=== PATIENT | female | born 1965 | race Caucasian/White ===

== ENCOUNTER 2022-11-04 13:10 | Emergency (ER) | payer MEDICARE, MEDICAID, SELFPAY ==
[2022-11-04 13:12] VITALS: BP 162/94; PULSE 80; RESP 14; TEMP 37.1; O2SAT 92; BMI 29.2
[2022-11-04 13:16] VITALS: BP 162/94; PULSE 80; RESP 14; TEMP 37.1; O2SAT 92; BMI 29.2
--- NOTE | 2022-11-04 13:38 | W.ED.EXTPRO ---
HPI - Extremity Problem General: Chief complaint: Extremity Injury, Upper Stated complaint: FALL/ ARM & SHOULDER PAIN Time Seen by Provider: 11/04/22 13:38 History of Present Illness: Ms. Cano is a 57-year-old lady not on anticoagulation presenting to the emergency department due to fall with shoulder injury. She reports leaning down to do something with a dog leash when she fell backwards primarily landing on the right side of her upper body. No loss of consciousness or head strike. Immediately pain in the shoulder. Mild radiation distally. Worse with palpation and movement. No other specific changes in health, exacerbating, or alleviating factors identified. Onset (ago): hour(s) Pain Consistency: constant Location: right Quality: aching and sharp Radiation: distal Relieving factors: nothing Exacerbating factors: range of motion and palpation Review of Systems General: Reports: 10 or more systems reviewed and unremarkable except in HPI and below PFSH ED PFSH: Medical History (Updated 11/17/22 @ 14:57 by Hayden Lowery MD) No significant past medical history Surgical History (Updated 11/17/22 @ 14:57 by Hayden Lowery MD) No significant past surgical history Physical Exam Const: COMMON NORMALS: alert GENERAL APPEARANCE: cooperative and well developed HENMT: COMMON NORMALS: normocephalic and atraumatic HEAD & SCALP: normocephalic and atraumatic THROAT: posterior oropharynx normal OTHER: No quiroz signs or raccoon eyes. No hemotympanum. No otorrhea or rhinorrhea. Jaw alignment normal. Dentition baseline. No obvious bony step-offs. No septal hematoma. No evidence of ocular entrapment. Eye: COMMON NORMALS: conjunctivae normal CONJUNCTIVA: Yes conjunctivae normal SCLERA: sclerae normal Neck/C-Spine: COMMON NORMALS: supple GENERAL: Yes trachea midline Chest: COMMONS NORMALS: normal palpation of entire chest wall Resp: COMMON NORMALS: clear to auscultation bilaterally EFFORT & INSPECTION: Yes able to speak in complete sentences AUSCULTATION: clear to auscultation bilaterally Cardio: COMMON NORMALS: regular rate and regular rhythm RATE: regular rate RHYTHM: regular rhythm GI: COMMON NORMALS: Soft to palpation PALPATION: Yes Soft to palpation and No Tenderness to palpation present (GI) Back/Pelvis: COMMON NORMALS: no thoracic nor lumbar tenderness Extremity: NARRATIVE EXTREMITY EXAM: Right mid and proximal humerus tenderness to palpation. Mild tenderness at the medial shoulder joint. Distal CMS intact. GENERAL: Yes normal exam except as noted and No edema Neuro: COMMON NORMALS: moves all extremities SENSORIUM/ORIENTATION: Yes alert and No Orientation impaired Psych: COMMON NORMALS: mental status grossly normal and Normal thought process present THOUGHT PROCESS: Normal thought process present Course Vital Signs: Vital signs: Vital Signs Temperature 98.7 F 11/04/22 13:16 Pulse Rate 80 11/04/22 13:16 Respiratory Rate 16 11/04/22 14:04 Blood Pressure 162/94 11/04/22 13:16 Pulse Oximetry 96 11/04/22 14:04 Oxygen Delivery Me thod 11/04/22 13:16 MDM - Extremity (Nontraumatic) Medical Decision Making 57-year-old lady presenting due to mechanical fall. Exam as above. Given clinical history no indication for laboratory studies at this time. X-rays with comminuted fracture of the humeral head. Chest x-ray negative for other pathology. Patient placed in sling. Pain controlled with analgesia. Given that pharmacies are closed analgesia dispensed for home along with prescription. Patient will have outpatient follow-up with orthopedics. Most likely etiology of symptoms is proximal humerus fracture. The results of ED evaluation were discussed with the patient including prescriptions and/or symptomatic cares (if applicable) including appropriate and responsible use, followup plan, and return precautions. The patient verbalized understanding and felt safe for discharge. Medical Records I reviewed the patient's medical records. Lab Data I reviewed the patient's lab results. Radiology Impressions Chest X-Ray 11/04/22 13:42 IMPRESSION: 1. Comminuted fracture right femoral head 2. Postoperative hardware cervical spine Humerus X-Ray 11/04/22 13:42 IMPRESSION: 1. Comminuted fracture of the humeral head. 2. Otherwise negative examination Shoulder X-Ray 11/04/22 14:38 IMPRESSION: 1. Comminuted fracture of the humeral head 2. Otherwise negative examination Discharge Plan Discharge Patient Disposition: Home Clinical Impression: Fracture of humerus Condition: Stable Prescriptions: New ondansetron 4 mg tablet,disintegrating 4 mg PO Q8H PRN (Reason: nausea and vomiting) Qty: 15 0RF oxycodone 5 mg tablet 5 mg PO Q4H PRN (Reason: pain) Qty: 20 0RF Discharge Orders: Discharge ED (Routine); Ordered 11/04/22 Ordered By: Hayden Lowery Referrals: Santiago Lo MD [Primary Care Provider] - Discharge Diet: Usual diet Discharge Activity: Limit activity as instructed Patient Instructions: Proximal Humerus Fracture (ED), Opioid Safety Activity Restrictions/Additional Instructions: Thank you for visiting the emergency department. You were seen and evaluated for fall with shoulder injury. You are found to have a humeral head fracture. I will message case management for orthopedics follow-up. I will prescribe oxycodone as well as antinausea medication. Please use this cautiously as discussed. You may use [id number] medications such as acetaminophen and ibuprofen for pain however please do not exceed the daily recommended dosage as listed on the packaging and please keep in mind that many namebrand medications contain the same active ingredients. Please avoid these medications if previously instructed to do so by another physician due to other underlying medical condition. Return to the emergency department for uncontrolled pain, any sensory or motor changes, or anything else that you are concerned about a feel needs emergency department evaluation. Coding Level of Care Code ED Behavioral Intervention Specialist for Bee Patel
--- NOTE | 2022-11-04 13:42 | XRR_ITS ---
PROCEDURE INFORMATION: Exam: XR Right Shoulder Exam date and time: 11/04/2022 1:47 PM Age: 57 years old Clinical indication: Injury or trauma; Fall; Blunt trauma (contusions or hematomas); Shoulder; Right TECHNIQUE: Imaging protocol: Radiologic exam of the Right shoulder. Views: 2 or more views. COMPARISON: No relevant prior studies available. FINDINGS: Bones/joints: Comminuted mildly displaced fractures of the right humeral head. There is no evidence of dislocation of the glenohumeral joint. Postsurgical hardware is seen in the cervical spine. Soft tissues: Normal. XR/XR shoulder RT min 2V* [id number] IMPRESSION: 1. Comminuted fracture right humeral head 2. Postsurgical hardware cervical spine 3. Otherwise negative examination
--- NOTE | 2022-11-04 13:42 | XRR_ITS ---
PROCEDURE INFORMATION: Exam: XR Right Humerus Exam date and time: 11/04/2022 1:47 PM Age: 57 years old Clinical indication: Injury or trauma; Fall; Blunt trauma (contusions or hematomas); Arm, upper; Right TECHNIQUE: Imaging protocol: Radiologic exam of the Right humerus. Views: 2 or more views. COMPARISON: No relevant prior studies available. FINDINGS: Bones/joints: Comminuted displaced fracture of the humeral head. Soft tissues: Normal. The remainder of the humerus is unremarkable. XR/[place] [id number] IMPRESSION: 1. Comminuted fracture of the humeral head. 2. Otherwise negative examination
--- NOTE | 2022-11-04 13:42 | XRR_ITS ---
PROCEDURE INFORMATION: Exam: XR Chest Exam date and time: 11/04/2022 1:47 PM Age: 57 years old Clinical indication: Injury or trauma; Fall; Blunt trauma (contusions or hematomas) TECHNIQUE: Imaging protocol: Radiologic exam of the chest. Views: 1 view. COMPARISON: No relevant prior studies available. FINDINGS: Lungs: Unremarkable. No consolidation. Pleural spaces: Unremarkable. No pleural effusion. No pneumothorax. Heart/Mediastinum: Unremarkable. No cardiomegaly. Bones/joints: Comminuted displaced fracture of the right femoral head. Postsurgical hardware is seen in the cervical spine. XR/XR chest 1V portable [id number] IMPRESSION: 1. Comminuted fracture right femoral head 2. Postoperative hardware cervical spine
[2022-11-04 14:04] VITALS: RESP 16; O2SAT 96
[2022-11-04] MEDS: morphine 4 mg/mL SDV 1 mL IVP (14:04)
--- NOTE | 2022-11-04 14:38 | XRR_ITS ---
PROCEDURE INFORMATION: Exam: XR Right Shoulder Exam date and time: 11/04/2022 1:47 PM Age: 57 years old Clinical indication: Pain; Shoulder; Right; Additional info: Axillary y please TECHNIQUE: Imaging protocol: Radiologic exam of the Right shoulder. Views: 1 view. COMPARISON: No relevant prior studies available. FINDINGS: Bones/joints: Comminuted displaced fracture of the humeral head. No evidence of glenohumeral joint dislocation. Soft tissues: Normal. XR/XR shoulder RT 1V [id number] IMPRESSION: 1. Comminuted fracture of the humeral head 2. Otherwise negative examination
[2022-11-04] MEDS: oxyCODONE 5 mg IR Tab/Cap 20 MG PO (16:16)
--- NOTE | 2022-11-04 16:16 | PC.NURSE ---
Due to weather, all pharmacies are closed so patient is being sent home with four 5mg Oxycodone tablets.
--- NOTE | 2022-11-05 09:36 | DCPLANNER ---
Addendum entered by Keeley Foley 12/13/22 08:52: comp field case manager received the following message from the ortho clinic regarding follow up appointment: attempt made to contact patient - left vm and mailed letter to contact our clinic to schedule with dr puritt Original Note: assistant auto center manager had message to schedule a follow up appointment for patient with ortho. assistant auto center manager sent patients information to the front office staff at ortho. Patients information will be printed and reviewed. Clinic will call patient with appointment information.
== END 2022-11-04 17:13 | disposition home or self-care (01) ==
PROVIDERS: Emergency Provider Emergency Medicine; PCP Family Medicine
DX: S42.291A Other displaced fracture of upper end of right humerus, initial encounter for closed fracture (principal); W18.39XA Other fall on same level, initial encounter
CPT/HCPCS: 71045; 73020; 73030; 73060; 96374; 99284; J2270

== ENCOUNTER → 2023-10-01 09:26 | Outpatient (BNVA) | payer MEDICARE, MEDICAID, SELFPAY | PROVIDERS: PCP Family Medicine; Visit Provider Internal Medicine | DX: E78.2 Mixed hyperlipidemia (principal); E01.0 Iodine-deficiency related diffuse (endemic) goiter; E11.42 Type 2 diabetes mellitus with diabetic polyneuropathy; E11.22 Type 2 diabetes mellitus with diabetic chronic kidney disease; N18.30 Chronic kidney disease, stage 3 unspecified; Z79.4 Long term (current) use of insulin; Z79.85 Long-term (current) use of injectable non-insulin antidiabetic drugs | CPT/HCPCS: 99204 ==

== ENCOUNTER → 2024-04-16 14:15 | Outpatient (BNVA) | payer MEDICARE, SELFPAY | PROVIDERS: PCP Family Medicine; Visit Provider Podiatrist Foot & Ankle Surgery | DX: L84 Corns and callosities (principal); G62.9 Polyneuropathy, unspecified | CPT/HCPCS: 99203 ==

== ENCOUNTER → 2024-06-21 12:54 | Outpatient (BNVA) | payer MEDICARE, SELFPAY | PROVIDERS: PCP Family Medicine; Visit Provider Podiatrist Foot & Ankle Surgery | DX: L84 Corns and callosities (principal); G62.9 Polyneuropathy, unspecified; E11.49 Type 2 diabetes mellitus with other diabetic neurological complication; L60.3 Nail dystrophy; M21.371 Foot drop, right foot; Z79.4 Long term (current) use of insulin | CPT/HCPCS: 11055; 11721; 99213 ==

== ENCOUNTER → 2024-09-08 09:04 | Outpatient (BNVA) | payer MEDICARE, MEDICAID, SELFPAY | PROVIDERS: PCP Family Medicine; Visit Provider Podiatrist Foot & Ankle Surgery | DX: E11.42 Type 2 diabetes mellitus with diabetic polyneuropathy (principal); L84 Corns and callosities; G62.9 Polyneuropathy, unspecified; L60.3 Nail dystrophy; M21.371 Foot drop, right foot; E11.621 Type 2 diabetes mellitus with foot ulcer; L97.518 Non-pressure chronic ulcer of other part of right foot with other specified severity; Z79.4 Long term (current) use of insulin | CPT/HCPCS: 11056; 11721; 99213 ==

== ENCOUNTER → 2024-12-02 09:39 | Outpatient (BNVA) | payer MEDICARE, MEDICAID, SELFPAY | PROVIDERS: PCP Family Medicine; Visit Provider Podiatrist Foot & Ankle Surgery | DX: E11.42 Type 2 diabetes mellitus with diabetic polyneuropathy (principal); L60.3 Nail dystrophy; L84 Corns and callosities; G62.9 Polyneuropathy, unspecified; M21.371 Foot drop, right foot; Z79.4 Long term (current) use of insulin | CPT/HCPCS: 11056; 11721 ==

== ENCOUNTER → 2024-12-20 10:54 | Outpatient (BNVA) | payer MEDICARE, MEDICAID, SELFPAY | PROVIDERS: PCP Family Medicine; Visit Provider Orthopaedic Surgery | DX: M25.561 Pain in right knee (principal); M25.562 Pain in left knee; M17.12 Unilateral primary osteoarthritis, left knee | CPT/HCPCS: 20610; 73560; 73565; 99204; J3301; J3490; J9999 ==

== ENCOUNTER → 2025-01-10 09:33 | Outpatient (BNVA) | payer MEDICARE, MEDICAID, SELFPAY | PROVIDERS: PCP Family Medicine; Visit Provider Orthopaedic Surgery | DX: M25.562 Pain in left knee (principal); G89.29 Other chronic pain | CPT/HCPCS: 99213 ==

== ENCOUNTER → 2025-02-03 08:51 | Outpatient (BNVA) | payer MEDICARE, MEDICAID, SELFPAY | PROVIDERS: PCP Family Medicine; Visit Provider Podiatrist Foot & Ankle Surgery | DX: E11.42 Type 2 diabetes mellitus with diabetic polyneuropathy (principal); L60.3 Nail dystrophy; L84 Corns and callosities; G62.9 Polyneuropathy, unspecified; M21.371 Foot drop, right foot; Z79.4 Long term (current) use of insulin | CPT/HCPCS: 11055; 11721 ==

== ENCOUNTER → 2025-05-04 08:55 | Outpatient (BNVA) | payer MEDICARE, MEDICAID, SELFPAY | PROVIDERS: PCP Family Medicine; Visit Provider Podiatrist Foot & Ankle Surgery | DX: E11.42 Type 2 diabetes mellitus with diabetic polyneuropathy (principal); L60.3 Nail dystrophy; L84 Corns and callosities; G62.9 Polyneuropathy, unspecified; E11.621 Type 2 diabetes mellitus with foot ulcer; L97.522 Non-pressure chronic ulcer of other part of left foot with fat layer exposed; M21.371 Foot drop, right foot; Z79.4 Long term (current) use of insulin | CPT/HCPCS: 11721; 99214 ==

== ENCOUNTER → 2025-05-11 09:26 | Outpatient (BNVA) | payer MEDICARE, MEDICAID, SELFPAY | PROVIDERS: PCP Family Medicine; Visit Provider Podiatrist Foot & Ankle Surgery | DX: L60.3 Nail dystrophy (principal); L84 Corns and callosities; G62.9 Polyneuropathy, unspecified; E08.621 Diabetes mellitus due to underlying condition with foot ulcer; L97.522 Non-pressure chronic ulcer of other part of left foot with fat layer exposed; M21.371 Foot drop, right foot; Z79.4 Long term (current) use of insulin | CPT/HCPCS: 99213 ==

== ENCOUNTER → 2025-07-20 09:37 | Outpatient (BNVA) | payer MEDICARE, MEDICAID, SELFPAY | PROVIDERS: PCP Family Medicine; Visit Provider Podiatrist Foot & Ankle Surgery | DX: L60.3 Nail dystrophy (principal); L84 Corns and callosities; G62.9 Polyneuropathy, unspecified; E11.42 Type 2 diabetes mellitus with diabetic polyneuropathy; M21.371 Foot drop, right foot; E11.621 Type 2 diabetes mellitus with foot ulcer; L97.522 Non-pressure chronic ulcer of other part of left foot with fat layer exposed; Z79.4 Long term (current) use of insulin; Z79.85 Long-term (current) use of injectable non-insulin antidiabetic drugs | CPT/HCPCS: 11055; 11721; 99213 ==